=== PATIENT | male | born 1985 | race Caucasian/White ===

== ENCOUNTER 2017-03-13 19:58 | Inpatient (IN) | payer OTHER ==
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
--- NOTE | ~2017-03-13 | TN ---
Unit #: [id number] #: [id number] Patient: PAOLA HENRIQUEZ [id number] [facility] [address] [place] [address] [id number] I MR#: [id number] NAME: PAOLA HENRIQUEZ. ROOM: P252 Age: 31 Sex: M Admission Date: 03/14/2017 : 1985 Discharge Date: 03/21/2017 Attending Physician: Cass Kemp M.D. Primary Care Physician: Primary Care Physician No LOC TRANSFER NOTE DATE OF SERVICE: 03/28/2017 DATE OF SERVICE 03/28/2017. HISTORY OF PRESENT ILLNESS Mr. Bedoya is a 31-year-old single white male with history of mood disorder, who was stepped down to the outpatient treatment program from the adult inpatient psychiatric unit, where he was hospitalized under my care from 03/14/2017 to 03/21/2017 and was discharged home. Upon evaluation by me, the patient was seen to be anxious, withdrawn, depressed, and seclusive to himself stating that he has been staying with his father and it has not been a good environment and still has been struggling with depressive symptoms, though he denies any suicidal ideations, intent, or plan. He reports that he has been taking the medications and has been tolerating them fairly well, though informed me that he is out of his Ambien and Neurontin and would like to get back on those medications and get another refill. SUBSTANCE ABUSE HISTORY The patient denies any ongoing alcohol or drug abuse. PAST PSYCHIATRIC HISTORY The patient has had a history of inpatient and outpatient psychiatric treatment and has been diagnosed and treated for bipolar disorder and ADHD and is currently on a combination of psychotropic medications. PAST MEDICAL HISTORY No acute or chronic medical illnesses. PERSONAL AND SOCIAL HISTORY A 31-year-old white male, who reports that he is single, unemployed, and currently has been living with his father and has fairly decent social support system. MENTAL STATUS EXAMINATION Young white male, who was casually dressed with fair personal hygiene, appears to be in no acute distress or discomfort. He was awake and alert on interaction with intact orientation. His mood was anxious with a congruent affect. He denies any suicidal or homicidal ideations and also denies any auditory or visual hallucinations. His insight and judgment remain slightly impaired. Unit #: [id number] #: [id number] Patient: PAOLA HENRIQUEZ DIAGNOSTIC IMPRESSION Psychiatric: Bipolar disorder, most recent episode depressed, recurrent, moderate, without psychotic features and attention deficit hyperactivity disorder. Medical: None. Stressors: Moderate psychosocial stressors. TREATMENT PLAN 1. The patient has presented with a history of mood disorder and has been decompensating. We will recommend enrolling him into the outpatient treatment program and maintaining him on his current medications. We will monitor his response and make further adjustments as needed. 2. Supportive therapy was provided to the patient. ESTIMATED LENGTH OF STAY 14 to 21 days. ABILITY TO HELP SELF Limited. WILLINGNESS TO HELP SELF The patient appears to be willing to help self. STRENGTHS 1. Communicative. 2. Cooperative. PROBLEMS 1. Chronic dysphoric symptoms. 2. Poor social support system. DISCHARGE CRITERIA This will be contingent upon the patient's ability to show resolution of his depression and anxiety and his ability to stay safe to himself, particularly after discharge from the program. Dictated by... Priyanka Kaur/yael TD: 03/28/2017 15:40 JOB #: [id number] LOC TRANSFER NOTE Page 1 of 1 X Cass Kemp MD X LOC TRANSFER NOTE
--- NOTE | ~2017-03-13 | PN ---
Unit #: [id number] #: [id number] Patient: PAOLA MARTIN [id number] [facility] [address] [place] [address] [id number] I MR#: [id number] NAME: PAOLA MARTIN. ROOM: P212 Age: 31 Sex: M Admission Date: 03/14/2017 : 1985 Attending Physician: Cass Kemp M.D. Admitting Physician: Cass Kemp M.D. Primary Care Physician: Primary Care Physician Mariaelena ESPINAL PROGRESS NOTES DATE 03/16/2017 DISCUSSION Mr. Martin is a 31-year-old, white male who was seen today and chart was reviewed and case was discussed with the staff. He has been anxious, withdrawn and rather seclusive to himself. Meanwhile, he has been cooperative with the treatment recommendations. He has been taking the medication and tolerating them fairly well with no reported side effects. MENTAL STATUS EXAM Young white male who was casually dressed with fair personal hygiene, appears to be in no acute distress or discomfort. He was awake and alert on interaction with intact orientation. His mood was anxious and depressed with congruent affect. He reports having suicidal ideation but denies any homicidal ideation. Also, denies any auditory or visual hallucinations. His insight and judgement remains slightly impaired. TREATMENT PLAN 1. We will continue him on his current medications and treatment protocol. We will monitor his response to the medication and make further adjustments as needed. 2. We will continue to follow up. Dictated by... Priyanka Kaur/daisha TD: 03/17/2017 03:44 JOB #: [id number] Unit #: [id number] #: [id number] Patient: PAOLA MARTIN PEAAFSANEH PROGRESS NOTES Page 1 of 1 X Cass Kemp MD PROGRESS NOTE
--- NOTE | ~2017-03-13 | HP ---
Unit #: [id number] #: [id number] Patient: PAOLA HENRIQUEZ [id number] [place] [address] [id number] I MR#: [id number] NAME: PAOLA HENRIQUEZ. ROOM: P205 Age: 31 Sex: M Admission Date: 03/14/2017 : 1985 Attending Physician: Cass Kemp M.D. Admitting Physician: Cass Kemp M.D. Primary Care Physician: Primary Care Physician No HISTORY AND PHYSICAL HISTORY OF PRESENT ILLNESS Paola is a 31 year old admitted to [address] [place] [address] with depression and verbalizing wanting to hurt himself. He has had other admissions to this facility for the same. PAST MEDICAL HISTORY History of colon polyps. PAST SURGICAL HISTORY Polypectomy. ALLERGIES Hydrocodone. SOCIAL HISTORY Smokes one pack per day. Denies alcohol. Admits to a history of occasional use of marijuana. FAMILY HISTORY Medically noncontributory. REVIEW OF SYSTEMS CONSTITUTIONAL: No fever or chills. HEENT: Denies any sore throat, ear pain or runny nose. CARDIOVASCULAR: Denies chest pain, irregular heart rhythm or palpitations. CHEST: Denies shortness of breath or cough. No hemoptysis. GASTROINTESTINAL: Denies nausea, vomiting, diarrhea or chronic constipation. ENDOCRINE: Denies history of increased thirst or urination. No recent significant weight loss or gain. GENITOURINARY: Denies dysuria, frequency, or hematuria. SKIN: Denies any rashes. HEMATOLOGIC: Denies history of increased bleeding or bruising. MUSCULOSKELETAL: Denies any hot, swollen joints. No generalized muscle pain. NEUROLOGIC: Denies problems with vision or speech. No frequent, severe headaches. No numbness, tingling or weakness in any extremities. Denies loss of bladder or bowel control. CURRENT MEDICATIONS 1. Seroquel 800 mg q.h.s. 2. Topamax 25 mg q.h.s. 3. Ambien 10 mg q.h.s. Unit #: [id number] #: [id number] Patient: PAOLA HENRIQUEZ 4. Nicorette gum p.r.n. 5. Neurontin 600 mg t.i.d. 6. Effexor 75 mg b.i.d. 7. Vyvanse 50 mg q. day. 8. Milk of Magnesia p.r.n. 9. Maalox p.r.n. 10. Tylenol p.r.n. PHYSICAL EXAMINATION GENERAL: Alert, well nourished. No apparent distress. VITAL SIGNS: Blood pressure 113/64, heart rate 99, respirations 16, and temperature 98.6. WEIGHT: 245. HEIGHT: 6 feet 1 inches. SKIN: Warm and dry without rash or lesion. HEENT: Normocephalic. TMs not viewed. Oral and nasal passages clear. Conjunctivae clear. PERRLA. EOMs intact. NECK: Supple without lymphadenopathy or thyromegaly. HEART: Regular rate and rhythm without murmur. LUNGS: Clear. ABDOMEN: Soft, nontender. : Not done. EXTREMITIES: No evidence of cyanosis, clubbing or edema. Moves all without focal deficit. NEUROLOGICAL: Grossly within normal limits. Cranial Nerves: II: Visual cristina are intact. III, IV AND : Extraocular movements are intact. Pupils are equal, round and reactive to light. V: Facial sensation is grossly normal. VII: Facial movements and expression are normal. VIII: Auditory acuity grossly intact. IX, X: Uvula is midline. Phonation is normal. XI: Patient shrugs shoulders and turns head normally. XII: Tongue protrudes in the midline. Sensory and Motor Function: Sensory and motor sensation is grossly normal. Motor: moves all extremities well. Coordination: Gait is normal. Deep Tendon Reflexes: Intact. IMPRESSION Psychiatric admission. RECOMMENDATIONS PSYCHIATRIC: Per psychiatrist. MEDICAL: I see no contraindication to participate in this facility's activities. MEDICAL PROGNOSIS Good. MEDICAL CONDITION Stable. Dictated by... Melyssa Doyle P.A.-C. for Priyanka Weber/janeen Unit #: [id number] #: [id number] Patient: PAOLA HENRIQUEZ TD: 03/15/2017 12:48 JOB #: [id number] HISTORY AND PHYSICAL Page 1 of 1 X Melyssa Doyle X HISTORY AND PHYSICAL
--- NOTE | ~2017-03-13 | PN ---
Unit #: [id number] #: [id number] Patient: PAOLA MARTIN [id number] [facility] [address] [place] [address] [id number] I MR#: [id number] NAME: PAOLA MARTIN. ROOM: P252 Age: 31 Sex: M Admission Date: 03/14/2017 : 1985 Attending Physician: Cass Kemp M.D. Admitting Physician: Cass Kemp M.D. Primary Care Physician: Primary Care Physician Mariaelena ESPINAL PROGRESS NOTES DATE 03/17/2017 DISCUSSION Mr. Martin is a 31-year-old, white male who was seen today and chart was reviewed and case was discussed with the staff. He remains anxious, withdrawn and rather seclusive to himself with persistent agitation, irritability and mood swings. Meanwhile, he has been taking the medication and tolerating them fairly well with no reported side effects. MENTAL STATUS EXAM Young white male who was casually dressed with fair personal hygiene, appears to be in no acute distress or discomfort. He was awake and alert on interaction with intact orientation. His mood was anxious with congruent affect. He denies any suicidal or homicidal ideation. His insight and judgement remains slightly impaired. TREATMENT PLAN 1. We will continue him on his current medications and treatment protocol. We will monitor his response to the medication and make further adjustments as needed. 2. We will continue to follow up. Dictated by... Priyanka Kaur/daisha TD: 03/19/2017 22:36 JOB #: [id number] Unit #: [id number] #: [id number] Patient: PAOLA MARTIN PEAAFSANEH PROGRESS NOTES Page 1 of 1 X Cass Kemp MD X PROGRESS NOTE
--- NOTE | ~2017-03-13 | DS ---
Unit #: [id number] #: [id number] Patient: PAOLA HENRIQUEZ [id number] [facility] [address] [place] [address] [id number] I MR#: [id number] NAME: PAOLA HENRIQUEZ. ROOM: P252 Age: 31 Sex: M Admission Date: 03/14/2017 : 1985 Discharge Date: 03/21/2017 Attending Physician: Cass Kemp M.D. Primary Care Physician: Primary Care Physician No DISCHARGE SUMMARY IDENTIFYING DATA Mr. Henriquez is a 31-year-old white male, who is a resident of [place], [place], and is known to us from previous encounter, was transferred to us from [facility]. DISCHARGE DIAGNOSES Psychiatric: Bipolar disorder, most recent episode depressed, recurrent, moderate, with psychosis; attention-deficit hyperactivity disorder; cannabis abuse, moderate. Medical: None. Stressors: Moderate psychosocial stressors. HISTORY OF PRESENT ILLNESS Please see initial psychiatric evaluation for details. PAST PSYCHIATRIC HISTORY Please see initial psychiatric evaluation for details. PAST MEDICAL HISTORY Please see initial psychiatric evaluation for details. HOSPITAL COURSE The [facility] and was oriented to the hospital environment. Routine p.r.n. medications were initiated, and he was started back on his home medications and was closely monitored. He was taking the medications regularly and was tolerating them fairly well and was able to show a fairly decent and therapeutic response with improvement in depression and anxiety and was denying any suicidal or homicidal ideations and was willing to continue treatment on an outpatient basis and as such, it was decided that he will be discharged home and will continue treatment on an outpatient basis. DISCHARGE MEDICATIONS Vyvanse 60 mg in the morning for ADHD, Seroquel 800 mg in the evening for bipolar, Effexor XR 75 mg b.i.d. for depression. DISCHARGE CONDITION Stable. PROGNOSIS Fair. Unit #: [id number] #: [id number] Patient: PAOLA HENRIQUEZ Dictated by... Priyanka Kaur/rizwanal TD: 03/21/2017 07:42 JOB #: [id number] DISCHARGE SUMMARY Page 1 of 1 X Cass Kemp MD DISCHARGE SUMMARY
--- NOTE | ~2017-03-13 | PN ---
Unit #: [id number] #: [id number] Patient: PAOLA MARTIN [id number] [facility] [address] [place] [address] [id number] I MR#: [id number] NAME: PAOLA MARTIN. ROOM: P252 Age: 31 Sex: M Admission Date: 03/14/2017 : 1985 Attending Physician: Cass Kemp M.D. Admitting Physician: Cass Kemp M.D. Primary Care Physician: Primary Care Physician Mariaelena ESPINAL PROGRESS NOTES DATE March 20, 2017 DISCUSSION Mr. Martin is a 31-year-old white male, who was seen today and chart was reviewed and the case was discussed with the staff. He has been anxious, withdrawn, and rather seclusive to himself. Meanwhile, he has been cooperative with the treatment recommendations and he has been taking the medications and tolerating them fairly well with no reported side effects. MENTAL STATUS EXAMINATION Young white male, who was casually dressed with fair personal hygiene and appears to be in no acute distress or discomfort. He was awake and alert on interaction with intact orientation. His mood is anxious with a congruent affect. He denies any suicidal or homicidal ideations. His insight and judgment remain slightly impaired. TREATMENT PLAN 1. We will continue him on his current medications and treatment protocol, and will monitor his response to the medications, and make further adjustments as needed. 2. We will continue to followup. Dictated by... Priyanka Kaur/lorenza TD: 03/21/2017 12:59 JOB #: [id number] Unit #: [id number] #: [id number] Patient: PAOLA MARTIN WILMAAFSANEH PROGRESS NOTES Page 1 of 1 X Cass Kemp MD PROGRESS NOTE
--- NOTE | ~2017-03-13 | PN ---
Unit #: [id number] #: [id number] Patient: PAOLA MARTIN [id number] [facility] [address] [place] [address] [id number] I MR#: [id number] NAME: PAOLA MARTIN. ROOM: P252 Age: 31 Sex: M Admission Date: 03/14/2017 : 1985 Attending Physician: Cass Kemp M.D. Admitting Physician: Cass Kemp M.D. Primary Care Physician: Primary Care Physician Mariaelena LUCIANO NOTES DATE March 19, 2017 DISCUSSION Mr. Martin is a 31-year-old white male, who was seen today and chart was reviewed and the case was discussed with the staff. He has been anxious, withdrawn, and rather seclusive to himself. Meanwhile, he has been taking the medications and tolerating them fairly well with no reported side effects. The staff reports that he has been having persistent anxiety and he has been rather seclusive to himself. MENTAL STATUS EXAMINATION Young white male, who was casually dressed with fair personal hygiene and appears to be in no acute distress or discomfort. He was awake and alert on interaction with intact orientation. His mood is anxious with a congruent affect. He denies any suicidal or homicidal ideations, and also denies any auditory or visual hallucinations. His insight and judgment remain slightly impaired. TREATMENT PLAN 1. We will continue him on his current medications and treatment protocol, and will monitor his response to the medications, and make further adjustments as needed. 2. We will continue to followup. Dictated by... Priyanka Kaur/lorenza TD: 03/21/2017 06:06 JOB #: [id number] Unit #: [id number] #: [id number] Patient: PAOLA MARTIN KYLIE PROGRESS NOTES Page 1 of 1 X Cass Kemp MD PROGRESS NOTE
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
--- NOTE | ~2017-03-13 | PN ---
Unit #: [id number] #: [id number] Patient: PAOLA MARTIN [id number] [facility] [address] [place] [address] [id number] MR#: [id number] NAME: PAOLA MARTIN ROOM: P252 Age: 31 Sex: M Admission Date: 03/14/2017 : 1985 Attending Physician: Cass Kemp M.D. Admitting Physician: Cass Kemp M.D. Primary Care Physician: Primary Care Physician Mariaelena ESPINAL PROGRESS NOTES DATE OF SERVICE: 03/18/2017 SUBJECTIVE Mr. Martin is a 31-year-old white male, who was seen today and chart was reviewed, and case was discussed with the staff. He has been anxious, withdrawn, and rather seclusive to himself. Meanwhile, he has been cooperative with treatment recommendations and has been taking medications and was tolerating them fairly well with no reported side effects. MENTAL STATUS EXAMINATION Young white male, who was casually dressed with fair personal hygiene, appears to be in no acute distress or discomfort. He was awake and alert on interaction with intact orientation. His mood was anxious with a congruent affect. He denies any suicidal or homicidal ideations and also denies any auditory or visual hallucinations. His insight and judgment remain slightly impaired. TREATMENT PLAN 1. We will continue him on his current medications and treatment protocol. We will monitor his response to medication and make further adjustments as needed. 2. We will continue to follow up. Dictated by... Priyanka Kaur/yael TD: 03/20/2017 06:52 JOB #: [id number] [facility] PROGRESS NOTES Page 1 of 1 X Cass Kemp MD PROGRESS NOTE
== END 2017-03-21 10:00 | disposition home or self-care (01) | DRG 885 ==
LOC: P1S 03-14 00:30 → P2S 03-14 00:30 → P2L 03-17 18:10
DX: F31.5 Bipolar disorder, current episode depressed, severe, with psychotic features (principal); F17.210 Nicotine dependence, cigarettes, uncomplicated; F90.9 Attention-deficit hyperactivity disorder, unspecified type; F12.10 Cannabis abuse, uncomplicated; Z86.010 Personal history of colon polyps
CPT/HCPCS: J3230

== ENCOUNTER 2017-07-03 12:27 | Inpatient (IN) | payer OTHER ==
[~2017-07-03] VITALS: Ht 185.4 cm; Wt 98.9 kg
--- NOTE | ~2017-07-03 | HP ---
Unit #: [id number] #: [id number] Patient: PAOLA HENRIQUEZ [id number] [place] [address] [id number] MR#: [id number] NAME: PAOLA HENRIQUEZ. ROOM: P113 Age: 31 Sex: M Admission Date: 07/03/2017 : 1985 Attending Physician: Cass Kemp M.D. Admitting Physician: Cass Kemp M.D. Primary Care Physician: Primary Care Physician No HISTORY AND PHYSICAL HISTORY OF PRESENT ILLNESS Paola is a 31 year old admitted to [address] [place] [address] with depression and verbalizing suicidal and homicidal ideation. PAST MEDICAL HISTORY History of colon polyps. PAST SURGICAL HISTORY Polypectomy. ALLERGIES Hydrocodone. SOCIAL HISTORY Smokes 1 pack per day. Denies alcohol. Admits to a history of occasional use of marijuana. FAMILY HISTORY Medically noncontributory. REVIEW OF SYSTEMS CONSTITUTIONAL: No fever or chills. HEENT: Denies any sore throat, ear pain or runny nose. CARDIOVASCULAR: Denies chest pain, irregular heart rhythm or palpitations. CHEST: Denies shortness of breath or cough. No hemoptysis. GASTROINTESTINAL: Denies nausea, vomiting, diarrhea or chronic constipation. ENDOCRINE: Denies history of increased thirst or urination. No recent significant weight loss or gain. GENITOURINARY: Denies dysuria, frequency, or hematuria. SKIN: Denies any rashes. HEMATOLOGIC: Denies history of increased bleeding or bruising. MUSCULOSKELETAL: Denies any hot, swollen joints. No generalized muscle pain. NEUROLOGIC: Denies problems with vision or speech. No frequent, severe headaches. No numbness, tingling or weakness in any extremities. Denies loss of bladder or bowel control. CURRENT MEDICATIONS 1. Ambien 10 mg q.h.s. 2. Seroquel 800 mg q.h.s. 3. Effexor XR 75 mg b.i.d. 4. Vistaril p.r.n. Unit #: [id number] #: [id number] Patient: PAOLA HENRIQUEZ 5. Milk of Magnesia p.r.n. 6. Maalox p.r.n. 7. Tylenol p.r.n. 8. Neurontin 600 mg t.i.d. 9. Nicotine patch 21 mg daily. PHYSICAL EXAMINATION GENERAL: Alert, well-nourished, in no apparent distress. VITAL SIGNS: Blood pressure 140/32, heart rate 80, respirations 16, temperature 98.6. WEIGHT: 218. HEIGHT: 6 feet 1 inch. SKIN: Warm and dry without rash or lesion. HEENT: Normocephalic. TMs not viewed. Oral and nasal passages clear. Conjunctivae clear. PERRLA. EOMs intact. NECK: Supple without lymphadenopathy or thyromegaly. HEART: Regular rate and rhythm without murmur. LUNGS: Clear. ABDOMEN: Soft, nontender. : Not done. EXTREMITIES: No evidence of cyanosis, clubbing or edema. Moves all without focal deficit. NEUROLOGICAL: Grossly within normal limits. Cranial Nerves: II: Visual cristina are intact. III, IV AND : Extraocular movements are intact. Pupils are equal, round and reactive to light. V: Facial sensation is grossly normal. VII: Facial movements and expression are normal. VIII: Auditory acuity grossly intact. IX, X: Uvula is midline. Phonation is normal. XI: Patient shrugs shoulders and turns head normally. XII: Tongue protrudes in the midline. Sensory and Motor Function: Sensory and motor sensation is grossly normal. Motor: moves all extremities well. Coordination: Gait is normal. Deep Tendon Reflexes: Intact. IMPRESSION Psychiatric admission. RECOMMENDATIONS PSYCHIATRIC: Per psychiatrist. MEDICAL: See no contraindication to participate in facility's activities. MEDICAL PROGNOSIS Good. MEDICAL CONDITION Stable. Dictated by... Melyssa Doyle P.A.-C. for Priyanka Weber/izabel TD: 07/04/2017 15:07 JOB #: [id number] Unit #: [id number] #: [id number] Patient: PAOLA HENRIQUEZ HISTORY AND PHYSICAL Page 1 of 1 X Melyssa Doyle HISTORY AND PHYSICAL
--- NOTE | ~2017-07-03 | PN ---
Unit #: [id number] #: [id number] Patient: PAOLA MARTIN [id number] [facility] [address] [place] [address] [id number] MR#: [id number] NAME: PAOLA MARTIN. ROOM: P113 Age: 31 Sex: M Admission Date: 07/03/2017 : 1985 Attending Physician: Cass Kemp M.D. Admitting Physician: Cass Kemp M.D. Primary Care Physician: Primary Care Physician Mariaelena LUCIANO NOTES DATE OF SERVICE 07/06/2017 DISCUSSION Mr. Martin is a 31-year-old white male who was seen today. Chart was reviewed and case was discussed with the staff. He has been anxious and withdrawn though has not shown any agitation or irritability and has been cooperative with the treatment recommendations and has been taking the medications and tolerating them fairly well though had a rough day yesterday with an episode of violent outbursts requiring intramuscular injection of Thorazine to be given. MENTAL STATUS EXAMINATION Young white male who is casually dressed with fair personal hygiene, appears to be in no acute distress or discomfort. He was awake and alert on interaction with intact orientation. His mood is anxious with a congruent affect. Speech is slow and restricted in content. He denies any suicidal or homicidal ideations. His insight and judgment remain slightly impaired. TREATMENT PLAN 1. We will continue him on his current medications and treatment protocol. We will monitor his response to the medications and make further adjustments as needed. 2. We will continue to follow up. Dictated by... Priyanka Kaur/janeen TD: 07/06/2017 11:01 JOB #: [id number] Unit #: [id number] #: [id number] Patient: PAOLA MARTIN KYLIE PROGRESS NOTES Page 1 of 1 X Cass Kemp MD PROGRESS NOTE
--- NOTE | ~2017-07-03 | DS ---
Unit #: [id number] #: [id number] Patient: PAOLA MARTIN [id number] [facility] [address] [place] [address] [id number] I MR#: [id number] NAME: PAOLA MARTIN ROOM: 13 Age: 31 Sex: M Admission Date: 07/03/2017 : 1985 Discharge Date: 07/11/2017 Attending Physician: Cass Kemp M.D. Primary Care Physician: Primary Care Physician No DISCHARGE SUMMARY IDENTIFYING DATA Mr. Martin is a 31-year-old white male, with history of mood disorder, and substance abuse, and is known to us from previous encounters. He was self-referred to the hospital. HISTORY OF PRESENT ILLNESS Please see initial psychiatric evaluation for details. PAST PSYCHIATRIC HISTORY Please see initial psychiatric evaluation for details. PAST MEDICAL HISTORY Please see initial psychiatric evaluation for details. HOSPITAL COURSE The patient was admitted to the Adult Psychiatric Unit at [facility] and was oriented to the hospital environment. Routine p.r.n. medications were initiated and he was started back on his home medications. Medications were adjusted and he was closely monitored and he was taking the medications and tolerating them fairly well, able to show a therapeutic response and was willing to continue treatment on an outpatient basis, and as such it was decided that he will be discharged home to continue treatment on an outpatient basis. DISCHARGE DIAGNOSES Psychiatric: [place] I Bipolar disorder, most recent episode depressed, recurrent, moderate without psychotic features. Attention deficit hyperactivity disorder. [place] II [place] III None [place] IV Moderate psychosocial stressors. [place] V DISCHARGE MEDICATIONS 1. Seroquel 800 mg at bedtime for bipolar 2. Effexor XR 75 mg twice a day for depression CONDITION AT DISCHARGE Stable. PROGNOSIS Unit #: [id number] #: [id number] Patient: PAOLA MARTIN Fair. Dictated by... Priyanka Kaur/lorenza TD: 07/12/2017 05:45 JOB #: [id number] DISCHARGE SUMMARY Page 1 of 1 X Cass Kemp MD X DISCHARGE SUMMARY
--- NOTE | ~2017-07-03 | PN ---
Unit #: [id number] #: [id number] Patient: PAOLA MARTIN [id number] [facility] [address] [place] [address] [id number] MR#: [id number] NAME: PAOLA MARTIN. ROOM: P113 Age: 31 Sex: M Admission Date: 07/03/2017 : 1985 Attending Physician: Cass Kemp M.D. Admitting Physician: Cass Kemp M.D. Primary Care Physician: Primary Care Physician Mariaelena LUCIANO NOTES DATE OF SERVICE 07/09/2017 DISCUSSION Mr. Martin is a 31-year-old white male who was seen today. Chart was reviewed and case was discussed with the staff who reports the patient has been seclusive to himself and has been voicing persistent depression and anxiety, auditory hallucinations and suicidal ideations, and has not been able to contract for safety and as such has been maintained on suicide watch. Meanwhile, he has been taking the medications and tolerating them fairly well with no reported side effects. MENTAL STATUS EXAMINATION Young white male who is casually dressed with fair personal hygiene, appears to be in no acute distress or discomfort. He was awake and alert on interaction with intact orientation. His mood is anxious and depressed with congruent affect. His speech is slow and restricted in content. He reports having suicidal ideations and auditory hallucinations. His insight and judgment remain slightly impaired. TREATMENT PLAN 1. We will continue him on his current medications and treatment protocol. We will monitor his response to the medications and make further adjustments as needed. 2. We will continue to follow up. Dictated by... Priyanka Kaur/bzg TD: 07/11/2017 10:15 JOB #: [id number] Unit #: [id number] #: [id number] Patient: PAOLA MARTIN KYLIE PROGRESS NOTES Page 1 of 1 X Cass Kemp MD PROGRESS NOTE
--- NOTE | ~2017-07-03 | DS ---
Unit #: [id number] #: [id number] Patient: PAOLA HENRIQUEZ [id number] [facility] [address] [place] [address] [id number] I MR#: [id number] NAME: PAOLA HENRIQUEZ. ROOM: P113 Age: 31 Sex: M Admission Date: 07/03/2017 : 1985 Discharge Date: 07/11/2017 Attending Physician: Cass Kemp M.D. Primary Care Physician: Primary Care Physician No DISCHARGE SUMMARY REVISED REPORT (See Addendum) IDENTIFYING DATA Mr. Henriquez is a 31-year-old white male, with history of mood disorder, and substance abuse, and is known to us from previous encounters. He was self-referred to the hospital. HISTORY OF PRESENT ILLNESS Please see initial psychiatric evaluation for details. PAST PSYCHIATRIC HISTORY Please see initial psychiatric evaluation for details. PAST MEDICAL HISTORY Please see initial psychiatric evaluation for details. HOSPITAL COURSE [facility] and was oriented to the hospital environment. Routine p.r.n. medications were initiated and he was started back on his home medications. Medications were adjusted and he was closely monitored and he was taking the medications and tolerating them fairly well, able to show a therapeutic response and was willing to continue treatment on an outpatient basis, and as such it was decided that he will be discharged home to continue treatment on an outpatient basis. DISCHARGE DIAGNOSES Psychiatric: [place] I Bipolar disorder, most recent episode depressed, recurrent, moderate without psychotic features. Attention deficit hyperactivity disorder. [place] II [place] III None [place] IV Moderate psychosocial stressors. [place] V DISCHARGE MEDICATIONS 1. Seroquel 800 mg at bedtime for bipolar 2. Effexor XR 75 mg twice a day for depression ADDENDUM Mr. Henriquez was scheduled to be discharged on July 08. However, the Unit #: [id number] #: [id number] Patient: PAOLA HENRIQUEZ patient reported not feeling good and reported increasing depression, anxiety, feelings of hopelessness, suicidal ideations, and command auditory hallucination and intent and plan to kill himself after getting out of the hospital and had poor social support system. As such recommendation for discharge planning to be canceled was made, and the patient was maintained on his medications and level of precautions until after the long Labor Day weekend when licensed clinical social worker were able to secure safe discharge planning followed by which it was decided that he will be discharged home and we will continue treatment on outpatient basis. CONDITION AT DISCHARGE Stable. PROGNOSIS Fair. Dictated by... Priyanka Kaur/lorenza TD: 07/12/2017 05:45 JOB #: [id number] ADDENDUM Revisions and deletions made per instructions on . Dictated by... Priyanka Kaur TD: 07/12/2017 10:36 JOB #: [id number] DISCHARGE SUMMARY Page 1 of 1 X Cass Kemp MD DISCHARGE SUMMARY
--- NOTE | ~2017-07-03 | PN ---
Unit #: [id number] #: [id number] Patient: PAOLA MARTIN [id number] [facility] [address] [place] [address] [id number] I MR#: [id number] NAME: PAOLA MARTIN. ROOM: P113 Age: 31 Sex: M Admission Date: 07/03/2017 : 1985 Attending Physician: Cass Kemp M.D. Admitting Physician: Cass Kemp M.D. Primary Care Physician: Primary Care Physician Mariaelena LUCIANO NOTES DATE July 05, 2017 DISCUSSION Mr. Martin is a 31-year-old white male, who was seen today and chart was reviewed and the case was discussed with the staff. He has been anxious, withdrawn, and rather seclusive to himself. Meanwhile, he has been cooperative with the treatment recommendations and he has been taking the medications and tolerating them fairly well but remains anxious, withdrawn, and depressed, rather seclusive to himself. MENTAL STATUS EXAMINATION Young white male, who was casually dressed with fair personal hygiene and appears to be in no acute distress or discomfort. He was awake and alert on interaction with intact orientation. His mood is anxious with a congruent affect. His speech is slow and tangential. His thought processes are disorganized with some looseness of associations and flight of ideas. His insight and judgment remain significantly impaired. TREATMENT PLAN 1. We will continue him on his current medications and treatment protocol, and will monitor his response to the medications, and make further adjustments as needed. 2. We will continue to followup. Dictated by... Priyanka Kaur/lorenza TD: 07/05/2017 12:20 JOB #: [id number] Unit #: [id number] #: [id number] Patient: PAOLA MARTIN KYLIE PROGRESS NOTES Page 1 of 1 X Cass Kemp MD PROGRESS NOTE
--- NOTE | ~2017-07-03 | PN ---
Unit #: [id number] #: [id number] Patient: PAOLA MARTIN [id number] [facility] [address] [place] [address] [id number] I MR#: [id number] NAME: PAOLA MARTIN. ROOM: P113 Age: 31 Sex: M Admission Date: 07/03/2017 : 1985 Attending Physician: Cass Kemp M.D. Admitting Physician: Cass Kemp M.D. Primary Care Physician: Primary Care Physician Mariaelena ESPINAL PROGRESS NOTES DATE July 07, 2017 DISCUSSION Mr. Martin is a 31-year-old white male, who was seen today and chart was reviewed and the case was discussed with the staff. He has been anxious, withdrawn, and reports persistent depressive symptoms. Meanwhile, he has been taking his medications and tolerating them fairly well with no reported side effects. MENTAL STATUS EXAMINATION Young white male, who was casually dressed with fair personal hygiene and appears to be in no acute distress or discomfort. He was awake and alert on interaction with intact orientation. His mood is anxious with a congruent affect. His speech is slow and goal-directed. He denies any suicidal or homicidal ideations. His insight and judgment remain slightly impaired. TREATMENT PLAN 1. We will continue him on his current medications and treatment protocol, and will monitor his response to the medications, and make further adjustments as needed. 2. We will continue to followup. Dictated by... Priyanka Kaur/lorenza TD: 07/07/2017 11:51 JOB #: [id number] Unit #: [id number] #: [id number] Patient: PAOLA MARTIN PROGRESS NOTES Page 1 of 1 X Cass Kemp MD PROGRESS NOTE
--- NOTE | ~2017-07-03 | PN ---
Unit #: [id number] #: [id number] Patient: PAOLA MARTIN [id number] [facility] [address] [place] [address] [id number] MR#: [id number] NAME: PAOLA MARTIN. ROOM: P113 Age: 31 Sex: M Admission Date: 07/03/2017 : 1985 Attending Physician: Cass Kemp M.D. Admitting Physician: Cass Kemp M.D. Primary Care Physician: Primary Care Physician Mariaelena ESPINAL PROGRESS NOTES DATE 07/04/2017 DISCUSSION Mr. Martin is a 31-year-old white male with a history of mood disorder who was seen today and chart was reviewed and case was discussed with the staff. He was seen to be anxious, withdrawn, depressed and rather seclusive to himself. Meanwhile, he has been cooperative with treatment recommendations and has been taking medications and tolerating them fairly well with no reported side effects. MENTAL STATUS EXAMINATION Young white male who was casually dressed with fair personal hygiene and appears to be in no acute distress or discomfort. He was awake and alert on interaction with intact orientation. His mood was anxious with congruent affect. His speech is slow and goal-directed. He denies any suicidal or homicidal ideation. His insight and judgement remains slightly impaired. TREATMENT PLAN 1. Will continue on his current medications and treatment protocol. Will monitor his response to the medications and make further adjustments as needed. 2. Will continue to follow up. Dictated by... Priyanka Kaur/izabel TD: 07/04/2017 22:34 JOB #: [id number] Unit #: [id number] #: [id number] Patient: PAOLA MARTIN PEAAFSANEH PROGRESS NOTES Page 1 of 1 X Cass Kemp MD PROGRESS NOTE
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
[2017-07-04 14:13] LABS: ALBUMIN SERUM 3.6 g/dL (3.5-5.0); BASOPHIL% 0.5 % (0-2.5); BILIRUBIN,TOTAL 0.7 mg/dL (0.2-2.0); BUN/CREATININE RATIO 16.25; CALCIUM SERUM 8.7 mg/dL (8.4-10.2); CREATININE SERUM 0.8 mg/dL (0.6-1.4); EOSINOPHIL# 0.1 X10e3 (0-0.7); EOSINOPHIL% 2.1 % (0.0-7.0); GLOM FILT RATE Estimated 117.4 mL/min (>60); HEMATOCRIT 43.1 % (38.0-50.0); HEMOGLOBIN 14.5 gm/dL (13.0-16.0); LYMPHOCYTE# 1.7 X10e3 (1.0-3.5); LYMPHOCYTE% 35.3 % (17.0-45.0); MEAN CELL VOLUME 86.4 FL (83-96); MEAN CORPUSCULAR HGB CONC 33.5 g/dL (30-36); MEAN PLATELET VOLUME 10.3 FL (6.5-11.5); MONOCYTE# 0.3 X10e3 (0-1.0); MONOCYTE% 7.2 % (3.0-12.0); NEUTROPHIL# 2.6 X10e3 (1.5-7.1); NEUTROPHIL% 54.9 % (40-75); PLATELET COUNT 176 X10e3 (140-420); POTASSIUM 3.9 mmol/L (3.5-5.1); PROTEIN TOTAL SERUM 6.2 g/dL (6.0-8.3); RED BLOOD COUNT 4.99 X10e (3.90-5.60); RED CELL DISTRIBUTION WIDTH 13.3 % (11.0-15.5); WHITE BLOOD COUNT 4.7 X10e3 (4.0-10.5)
[2017-07-04 14:19] LABS: DIFF IND NO
== END 2017-07-11 09:45 | DRG 885 ==
LOC: P1S 16:38
PROVIDERS: Psychiatry & Neurology Psychiatry
DX: F31.32 Bipolar disorder, current episode depressed, moderate (principal); R45.851 Suicidal ideations; Z88.5 Allergy status to narcotic agent; F17.200 Nicotine dependence, unspecified, uncomplicated; F90.9 Attention-deficit hyperactivity disorder, unspecified type
CPT/HCPCS: 80053; 85025; J3230